=== PATIENT | male | born 1970 | race Caucasian/White ===

== ENCOUNTER 2017-09-18 08:48 | Day surgery (SDC) | payer OTHER ==
[~2017-09-18] VITALS: Ht 177.8 cm; Wt 138.8 kg
[~2017-09-18 08:48] MED LIST: ALBU90OI INH; Avodart0.5 MG PO; BUME2 PO; ERYT333ERA PO; HYDCHL25 PO; HYDGUAL120 PO; JARDIANCE25 MG PO; METF500 PO; METO25ER PO; POTCHL20ER PO; PRAV20 PO; Prinivil10 MG PO; TAMS.4ER PO
== END 2017-09-18 22:45 | disposition home or self-care (01) ==
LOC: ORSCMMR 08:48 → ORD 10:30 → ORSCMMR 10:30
PROVIDERS: Internal Medicine Gastroenterology
PROC: 0DBN8ZX Excision of Sigmoid Colon, Via Natural or Artificial Opening Endoscopic, Diagnostic (ICD-10-PCS; principal; 2017-09-18 10:30)
DX: K62.5 Hemorrhage of anus and rectum (principal); K63.5 Polyp of colon; Z80.0 Family history of malignant neoplasm of digestive organs; G47.30 Sleep apnea, unspecified; E11.9 Type 2 diabetes mellitus without complications; E66.9 Obesity, unspecified; Z68.41 Body mass index [BMI] 40.0-44.9, adult; Z79.84 Long term (current) use of oral hypoglycemic drugs; Z79.899 Other long term (current) drug therapy
CPT/HCPCS: 82947; 88305; J2250; J3010; J7030

== ENCOUNTER 2021-07-27 07:07 | Day surgery (SDC) | payer OTHER ==
[~2021-07-27] VITALS: Ht 180.3 cm; Wt 143.0 kg
[2021-07-27] MEDS ORDERED: BASAGLAR K100 UNIT/1 (07:52)
[2021-07-27] MEDS ORDERED: HUMALOG100 UNIT/1 (07:53)
--- NOTE | 2021-07-27 08:40 | NUR ---
07/27/21 0840 Joe Shaffer 0.20 MG EPI ADDED TO 20 ML'S OF 2% LIDOCAINE TO ACHIEVE SOLUTION OF 1:100,000. 10 ML'S INJ INTO OPSITE AT [address] KELLY.
--- NOTE | 2021-07-27 09:00 | NUR ---
07/27/21 0900 NANCY MATHUR PT UNABLE TO TAKE TRAMADOL FOR HOME PAIN MED [place]. DR KELLY TOLD PT TO TAKE OTC MEDS THAT HE USUALLY WOULD TAKE FOR DISCOMFORT SHOULD HE HAVE PAIN
== END 2021-07-27 09:23 | disposition home or self-care (01) ==
LOC: ORSCSDS 07:07
PROVIDERS: Orthopaedic Surgery
PROC: 0LB70ZZ Excision of Right Hand Tendon, Open Approach (ICD-10-PCS; principal; 2021-07-27 08:30)
PROC: 01N50ZZ Release Median Nerve, Open Approach (ICD-10-PCS; principal; 2021-07-27 08:30)
DX: G56.03 Carpal tunnel syndrome, bilateral upper limbs (principal); M67.441 Ganglion, right hand; I10 Essential (primary) hypertension; E11.9 Type 2 diabetes mellitus without complications; G62.9 Polyneuropathy, unspecified; E66.01 Morbid (severe) obesity due to excess calories; Z68.41 Body mass index [BMI] 40.0-44.9, adult; Z79.4 Long term (current) use of insulin; Z79.899 Other long term (current) drug therapy
CPT/HCPCS: 82947; J0171; J0690; J1100; J2250; J2405; J2704